=== PATIENT | male | born 1945 ===

== ENCOUNTER 2022-01-11 03:24 | Observation (INO) | payer MEDICARE, MEDICAID ==
[2022-01-11] MEDS ORDERED: Acetaminophen 325 MG TAB PO PRN (04:29)
[2022-01-11] MEDS ORDERED: Ondansetron PF 4 MG/2 ML Vial IVP PRN (04:29)
[2022-01-11] MEDS ORDERED: Acetaminophen 650 MG Suppository PR PRN (04:29)
[2022-01-11] MEDS ORDERED: Ondansetron ODT 4 MG TAB PO PRN (04:29)
[2022-01-11 05:49] VITALS: BMI 25.7
[2022-01-11 10:28] LABS: Anion Gap 15 mmol/L (10-20); BUN (Urea Nitrogen) 18 mg/dL (8.4-25.7); Calc. Creatinine Clearance 78 mL/min (70-130); Calcium 8.9 mg/dL (7.8-10.44); Carbon Dioxide 23 mmol/L (23-31); Chloride 105 mmol/L (98-107); Estimated GFR 83; Glucose 147 mg/dL (83-110); Potassium 3.5 mmol/L (3.5-5.1); Sodium 139 mmol/L (136-145)
[2022-01-11] MEDS ORDERED: Albuterol Sulfate 2.5 mg/3 ml Neb NEB PRN (12:37)
[2022-01-11] MEDS ORDERED: Ipratropium Bromide 2.5 ml Neb NEB SCH (13:00)
[2022-01-11 13:04] VITALS: BP 157/79; TEMP 97.4
[2022-01-11] MEDS ORDERED: Mometasone 200 MCG/Formoterol 5 MCG 120 PUFF INHALER INH SCH (18:30)
[2022-01-12] MEDS ORDERED: Amlodipine 10 MG TAB PO SCH (09:00)
== END 2022-01-11 16:15 | disposition home or self-care (01) ==
LOC: ERS 03:24 → 2SW 04:11
PROVIDERS: ADMIT Hospitalist; ATTEND Hospitalist
DX: T78.3XXA Angioneurotic edema, initial encounter (principal); T46.4X5A Adverse effect of angiotensin-converting-enzyme inhibitors, initial encounter; Z20.822 Contact with and (suspected) exposure to COVID-19; I10 Essential (primary) hypertension; Z79.899 Other long term (current) drug therapy; Z88.2 Allergy status to sulfonamides; Z88.8 Allergy status to other drugs, medicaments and biological substances
CPT/HCPCS: 80048; G0378 ×2; U0003; U0005; 36415; 99285